=== PATIENT | male | born 1980 | race Caucasian/White ===

== ENCOUNTER 2022-01-07 09:20 | Emergency (ER) | payer OTHER ==
[~2022-01-07] VITALS: Ht 185.4 cm; Wt 122.7 kg
[2022-01-07 09:31] VITALS: TEMP 98.3
[2022-01-07 11:01] LABS: BASO # 0.1 K/mm3 (0.0-0.2); BASO % 0.8 % (0.0-2.0); EOS # 1.2 K/mm3 (0.0-0.7); EOS % 15.1 % (0.0-4.0); GRAN % 37.8 % (42.2-75.2); HEMATOCRIT 44.1 % (42.0-52.0); LYMPH # 3.2 K/mm3 (1.2-3.4); LYMPH % 39.8 % (20.0-51.0); MEAN CELL VOLUME 87 fl (80.0-100.0); MEAN CORPUSCULAR HEMOGLOBIN 30 pg (27-31); MEAN CORPUSCULAR HGB CONC 34 g/dl (33.0-37.0); MEAN PLATELET VOLUME 9.1 fl (7.4-10.4); MONO # 0.5 K/mm3 (0.1-0.6); MONO % 6.1 % (1.7-9.3); PLATELET COUNT 190 K/mm3 (130-400); RED BLOOD COUNT 5.05 M/mm3 (4.20-5.60); REDCELL DISTRIBUTION WIDTH-CV 12.6 % (11.5-14.5)
[2022-01-07 11:20] LABS: ALANINE AMINOTRANSFERASE 38 U/L (0-55); ALBUMIN 4.5 gm/dL (3.5-5.0); ALKALINE PHOSPHATASE 60 U/L (40-150); ANION GAP 12 mmol/L (7-16); AST,SGOT 31 U/L (5-34); BILIRUBIN,TOTAL 0.6 mg/dL (0.2-1.2); BLOOD UREA NITROGEN 18 mg/dL (9-21); CALCIUM 9.5 mg/dL (8.4-10.2); CARBON DIOXIDE 25 mmol/L (22-29); CHLORIDE 104 mmol/L (98-107); CREATININE, serum 1.32 mg/dL (0.72-1.25); GLUCOSE 91 mg/dL (70-99); POTASSIUM 4.4 mmol/L (3.5-4.5); SODIUM 141 mmol/L (136-145); TOTAL PROTEIN 7.4 gm/dL (6.2-8.1)
[2022-01-07 11:30] LABS: TROPONIN-I < 0.010 ng/mL (0.00-0.033)
[2022-01-07 12:01] VITALS: BP 136/86; PULSE 45
[2022-01-07] MEDS ORDERED: BYSTOLIC5 MG PO (12:58)
[2022-01-07] MEDS ORDERED: HYZAAR 12.5 MG-1 TAB PO (12:58)
[2022-01-07] MEDS ORDERED: FASTIN30 MG PO (12:58)
== END 2022-01-07 12:01 | disposition home or self-care (01) ==
LOC: COL.ER 09:20
PROVIDERS: Student in an Organized Health Care Education/Training Program
DX: R53.81 Other malaise (principal)